=== PATIENT | female | born 1990 | race Caucasian/White ===

== ENCOUNTER 2019-08-20 01:31 | Emergency (ER) | payer MEDICAID ==
[~2019-08-20] VITALS: Ht 170.2 cm; Wt 42.2 kg
[2019-08-20 02:45] VITALS: BP_SYST 106
--- NOTE | 2019-08-20 02:45 | NUR ---
Pt wheeled to bed 2 for evaluation
--- NOTE | 2019-08-20 03:20 | NUR ---
PT COMPLAINT OF LEFT KNEE PAIN THAT STARTED OVER NIGHT. PT STATES SHE HAS BEEN HIKING EARLIER IN THE DAY. PT STATES SHE HIKES OFTEN AND THIS IS THE FIRT TIME THIS HAS HAPPEN. PT DENIES ANY TRAUMA TO KNEE.
[2019-08-20] MEDS ORDERED: KETOROLAC TROMETHAMINE 60 MG/2 ML VIAL IM ONE (04:00)
[2019-08-20 04:30] VITALS: BP_SYST 107
--- NOTE | 2019-08-20 04:32 | NUR ---
DPatient given written and verbal discharge instructions and verbalizes understanding. ER MD discussed with patient the results and treatment provided. Patient in stable condition. Rx of given. Patient educated on pain management and to follow up with PMD. Pain Scale [2]. Opportunity for questions provided and answered. Medication side effect fact sheet provided.
== END 2019-08-20 04:30 | disposition home or self-care (01) ==
LOC: SED 01:31
DX: S83.92XA Sprain of unspecified site of left knee, initial encounter (principal); J45.909 Unspecified asthma, uncomplicated; X50.0XXA Overexertion from strenuous movement or load, initial encounter; Y93.01 Activity, walking, marching and hiking; Y92.89 Other specified places as the place of occurrence of the external cause; Y99.8 Other external cause status
CPT/HCPCS: 29505; 73564; 96372; 99283; J1885

== ENCOUNTER 2020-10-11 00:48 | Emergency (ER) | payer MEDICAID ==
[~2020-10-11] VITALS: Ht 170.2 cm; Wt 46.7 kg
[2020-10-11 01:03] VITALS: BP_SYST 98
[2020-10-11] MEDS ORDERED: NACL 0.9% 1,000 ML IV ONE (02:30)
[2020-10-11 03:13] LABS: BASOPHILS % (AUTO) 0.3 % (0.0-2.0); EOSINOPHILS # (AUTO) 0.1 K/uL (0.0-0.4); EOSINOPHILS % (AUTO) 1.9 % (0.0-4.0); HEMATOCRIT 39.8 % (36-48); HEMOGLOBIN 13.4 g/dL (12.0-16.0); LYMPHOCYTES # (AUTO) 1.7 K/uL (1.0-5.5); LYMPHOCYTES % (AUTO) 35.8 % (20.5-51.5); MEAN CORPUSCULAR HEMOGLOBIN 29 pg (27-31); MEAN CORPUSCULAR HGB CONC 34 % (32-36); MEAN CORPUSCULAR VOLUME 86 fL (79.0-98.0); MONOCYTES # (AUTO) 0.4 K/uL (0.0-1.0); MONOCYTES % (AUTO) 8.4 % (1.7-9.3); NEUTROPHILS # (AUTO) 2.6 K/uL (1.8-7.7); NEUTROPHILS % (AUTO) 53.6 % (40.0-70.0); PLATELET COUNT (AUTO) 193 K/uL (130-430); RED BLOOD CELL COUNT(AUTO) 4.61 MIL/uL (4.2-6.2); RED CELL DISTRIBUTION WIDTH 13.3 % (9.0-15.0); WHITE BLOOD COUNT (AUTO) 4.8 K/uL (4.8-10.8)
[2020-10-11 03:15] LABS: BILIRUBIN,URINE 1+ (NEGATIVE); BLOOD, URINE 3+ (NEGATIVE); CLARITY/URINE SL CLOUDY (CLEAR); COLOR,URINE ORANGE (YELLOW); GLUCOSE,URINE NEGATIVE (NEGATIVE); KETONES,URINE NEGATIVE (NEGATIVE); LEUKOCYTE ESTERASE ,URINE NEGATIVE (NEGATIVE); NITRITE, URINE NEGATIVE (NEGATIVE); PH,URINE 5.5 (5.0-8.0); PROTEIN URINE 2+ (NEGATIVE); UROBILINOGEN,URINE 0.2 (0.2-1.0)
[2020-10-11 03:30] LABS: BACTERIA,URINE FEW /HPF (None Seen)
[2020-10-11 03:31] LABS: CALCIUM 8.8 mg/dL (8.4-11.0); CREATININE 0.8 mg/dL (0.55-1.30); POTASSIUM 3.6 mmol/L (3.5-5.1)
[2020-10-11 03:36] LABS: TOTAL BILIRUBIN 0.3 mg/dL (0.0-1.0)
[2020-10-11 05:30] VITALS: BP_SYST 98
== END 2020-10-11 05:31 | disposition home or self-care (01) ==
LOC: SED 00:48
DX: R19.7 Diarrhea, unspecified (principal); J45.909 Unspecified asthma, uncomplicated; Z79.899 Other long term (current) drug therapy
CPT/HCPCS: 36415; 80053; 81000; 85025; 96360; 99283; J7030

== ENCOUNTER 2021-01-06 20:09 | Emergency (ER) | payer MEDICAID ==
[~2021-01-06] VITALS: Ht 170.2 cm; Wt 46.7 kg
[2021-01-06 20:15] VITALS: BP_SYST 115
== END 2021-01-06 21:50 | disposition left against medical advice (07) ==
LOC: SED 20:09
DX: R21 Rash and other nonspecific skin eruption (principal); Z53.21 Procedure and treatment not carried out due to patient leaving prior to being seen by health care provider